=== PATIENT | male | born 1990 | race Asian ===

== ENCOUNTER 2024-11-26 18:10 | Emergency (ER) | payer OTHER ==
--- NOTE | 2024-11-26 18:22 | ED ---
Eye Problem HPI - General Source: patient <Christine Moraes - Last Filed: 11/26/24 18:20> <Brent Santa - Last Filed: 11/26/24 22:07> - General Stated complaint: rt eye issue Time Seen by Provider: 11/26/24 18:20 - History of Present Illness Initial comments: Quick [id number] male presenting for foreign body in right eye. States about 20 minutes ago he was working with metal when shards of metal flew into his eye. States he flushed his eye out and believes he got most of it out, however continues to report foreign body sensation and believes there is a piece of metal in his eye. He is able to see out of the eye. Last tetanus unknown. (Christine Moraes) - Related Data Previous Rx's Medication Instructions Recorded Ciprofloxacin Ophth Soln [Cipro 1 drops RIGHT EYE Q6HR #5 ml 11/26/24 0.3% Ophth Soln] Allergies Allergy/AdvReac Type Severity Reaction Status Date / Time No Known Allergies Allergy Verified 11/26/24 18:30 Review of Systems ROS Other: All systems not noted in ROS Statement are negative. <Christine Moraes - Last Filed: 11/26/24 18:20> ROS Other: All systems not noted in ROS Statement are negative. <Brent Santa - Last Filed: 11/26/24 22:07> ROS Statement: Those systems with pertinent positive or pertinent negative responses have been documented in the HPI. General Exam <Christien Moraes - Last Filed: 11/26/24 18:20> General appearance: alert, in no apparent distress Head exam: Present: atraumatic, normocephalic Eye exam: Present: PERRL, EOMI, other (No fluorescein uptake on the cornea, negative Penelope's, small metallic foreign body 6 o'clock position within the sclera with subconjunctival hemorrhage) Respiratory exam: Present: normal lung sounds bilaterally. Absent: respiratory distress Cardiovascular Exam: Present: regular rate, normal rhythm GI/Abdominal exam: Present: soft. Absent: distended, tenderness Extremities exam: Present: normal inspection, normal capillary refill Psychiatric exam: Present: normal affect, normal mood Skin exam: Present: warm, dry, intact <Brent Santa - Last Filed: 11/26/24 22:07> - General Exam Comments Initial Comments: Visual Physical Exam General: Well-appearing, nontoxic, no acute distress. Head: Normocephalic, atraumatic Eyes: PERRLA, EOMI ENT: Airway patent Chest: Nonlabored breathing Skin: No visual rash, normal skin tone Neuro: Alert and oriented 3 Musculoskeletal: No gross abnormalities (Christine Moraes) Medical Decision Making <Christine Moraes - Last Filed: 11/26/24 18:20> <BrisalillianaBrent - Last Filed: 11/26/24 22:07> - Medical Decision Making I completed the quick note portion of this chart signed Christine Moraes PA-C (Christine Moraes) Was pt. sent in by a medical professional or institution (ASHUTOSH Galloway, DENTIST/OWNER, urgent care, hospital, or senior care...) When possible be specific @ -No Did you speak to anyone other than the patient for history (EMS, parent, family, police, friend...)? What history was obtained from this source @ -No Did you review nursing and triage notes (agree or disagree)? Why? @ -I reviewed and agree with nursing and triage notes Were old charts reviewed (outside hosp., previous admission, EMS record, old EKG, old radiological studies, urgent care reports/EKG's, senior care records)? Report findings @ -No old charts were reviewed Differential Diagnosis :corneal foreign body, laceration, subconjunctival hemorrhage EKG interpreted by me (3pts min.). @ -As above X-rays interpreted by me (1pt min.). @ -None done CT interpreted by me (1pt min.). @ -None done U/S interpreted by me (1pt. min.). @ -None done What testing was considered but not performed or refused? (CT, X-rays, U/S, labs)? Why? @ -None What meds were considered but not given or refused? Why? @ -None Did you discuss the management of the patient with other professionals (professionals i.e. ASHUTOSH Galloway, DENTIST/OWNER, lab, RT, psych nurse, psychosocial rehabilitation counselor, proof machine operator supervisor, teacher, seismology technical officer, case management coordinator)? Give summary @ -No Was smoking cessation discussed for >3mins.? @ -No Was critical care preformed (if so, how long)? @ -No Were there social determinants of health that impacted care today? How? (Homelessness, low income, unemployed, alcoholism, drug addiction, transportation, low edu. Level, literacy, decrease access to med. care, mcc, rehab)? @ -No Was there de-escalation of care discussed even if they declined (Discuss DNR or withdrawal of care, Hospice)? DNR status @ -No What co-morbidities impacted this encounter? (DM, HTN, Smoking, COPD, CAD, Cancer, CVA, ARF, Chemo, Hep., AIDS, mental health diagnosis, sleep apnea, morbid obesity)? @ -None Was patient admitted / discharged? Hospital course, mention meds given and route, prescriptions, significant lab abnormalities, going to OR and other pertinent info. @ -34-year-old male with foreign body in the sclera with subconjunctival hemorrhage. The metallic foreign body is very small, believe able to be removed but subconjunctival hemorrhage limits visualization completely. There is no corneal laceration or abrasion. Tetanus is updated and the patient started on antibiotic drops and given ophthalmology follow-up. Undiagnosed new problem with uncertain prognosis? @ -No Drug Therapy requiring intensive monitoring for toxicity (Heparin, Nitro, Insulin, Cardizem)? @ -No Were any procedures done? @ -No Diagnosis/symptom? @ -Metallic foreign body right eye sclera Acute, or Chronic, or Acute on Chronic? @ -Acute Uncomplicated (without systemic symptoms) or Complicated (systemic symptoms)? @ -Default Side effects of treatment? @ -No Exacerbation, Progression, or Severe Exacerbation? @ -No Poses a threat to life or bodily function? How? (Chest pain, USA, DC, pneumonia, PE, COPD, DKA, ARF, appy, cholecystitis, CVA, Diverticulitis, Homicidal, Suicidal, threat to staff... and all critical care pts) @ -No (Brent Santa) Disposition <Christine Moraes - Last Filed: 11/26/24 18:20> Is patient prescribed a controlled substance at d/c from ED?: No Time of Disposition: 18:57 <Brent Santa - Last Filed: 11/26/24 22:07> Clinical Impression: Eye foreign body, Subconjunctival hemorrhage, traumatic Disposition: HOME SELF-CARE Condition: Fair Instructions (If sedation given, give patient instructions): Eye Foreign Body (ED) Prescriptions: Ciprofloxacin Ophth Soln [Cipro 0.3% Ophth Soln] 1 drops RIGHT EYE Q6HR #5 ml Referrals: None,Stated [Primary Care Provider] - 1-2 days Genaro Crawford MD [STAFF PHYSICIAN] - 1-2 days
[2024-11-26] MEDS: DIPH,PERTUS(ACELL)TETVAC-LF 0.5 ML VIAL IM ONE (19:27)
[2024-11-26] MEDS: FLUORESCEIN STRIPS 1 MG STRIP RIGHT EYE ONE (19:27)
[2024-11-26] MEDS: PROPARACAINE 0.5% OPHTH DROPS 15 ML BTL RIGHT EYE STA (19:27)
== END 2024-11-26 19:29 | disposition home or self-care (01) ==
LOC: EC 18:10
DX: H11.31 Conjunctival hemorrhage, right eye (principal); Z23 Encounter for immunization; W20.8XXA Other cause of strike by thrown, projected or falling object, initial encounter
CPT/HCPCS: 90471; 90715; 99283

== ENCOUNTER 2025-01-17 18:07 | Emergency (ER) | payer OTHER ==
--- NOTE | 2025-01-17 18:39 | ED ---
General Adult HPI - General Chief complaint: Psychiatric Symptoms Stated complaint: Petition Time Seen by Provider: 01/17/25 18:15 Source: patient, RN notes reviewed, old records reviewed Mode of arrival: ambulatory Limitations: no limitations - History of Present Illness Initial comments: 34-year-old male presents on court ordered pickup for mental health evaluation. The patient himself is not aware of why he is here. He denies drugs or alcohol. He denies suicidal or homicidal ideation. He denies a prior history of mental illness. Patient accompanied by local police. Patient has no physical complaints. - Related Data Previous Rx's Medication Instructions Recorded Ciprofloxacin Ophth Soln [Cipro 1 drops RIGHT EYE Q6HR #5 ml 11/26/24 0.3% Ophth Soln] Allergies Allergy/AdvReac Type Severity Reaction Status Date / Time No Known Allergies Allergy Verified 01/17/25 18:10 Review of Systems ROS Statement: Those systems with pertinent positive or pertinent negative responses have been documented in the HPI. ROS Other: All systems not noted in ROS Statement are negative. Past Medical History Past Medical History: No Reported History History of Any Multi-Drug Resistant Organisms: MRSA Date of last positivie culture/infection: 2015 Past Surgical History: No Surgical Hx Reported Past Psychological History: No Psychological Hx Reported Smoking Status: Current every day smoker Past Alcohol Use History: Rare Past Drug Use History: Marijuana General Exam Limitations: no limitations General appearance: alert, in no apparent distress Head exam: Present: atraumatic, normocephalic Eye exam: Present: normal appearance, PERRL ENT exam: Present: normal exam Neck exam: Present: normal inspection. Absent: tenderness, meningismus Respiratory exam: Present: normal lung sounds bilaterally. Absent: respiratory distress, wheezes Cardiovascular Exam: Present: regular rate, normal rhythm GI/Abdominal exam: Present: soft. Absent: distended, tenderness Neurological exam: Present: alert, oriented X3, CN II-XII intact, normal gait. Absent: motor sensory deficit Psychiatric exam: Present: flat affect. Absent: homicidal ideation, suicidal ideation Skin exam: Present: warm, dry, intact Course Vital Signs 01/17/25 01/17/25 18:08 19:03 Temperature 98.3 F Pulse Rate 111 H Respiratory 16 17 Rate Blood Pressure 138/84 O2 Sat by Pulse 97 Oximetry Medical Decision Making - Medical Decision Making Was pt. sent in by a medical professional or institution (ASHUTOSH Galloway, ROLL EXAMINER, urgent care, hospital, or skilled nursing...) When possible be specific @ -No Did you speak to anyone other than the patient for history (EMS, parent, family, police, friend...)? What history was obtained from this source @ -No Did you review nursing and triage notes (agree or disagree)? Why? @ -I reviewed and agree with nursing and triage notes Were old charts reviewed (outside hosp., previous admission, EMS record, old EKG, old radiological studies, urgent care reports/EKG's, skilled nursing records)? Report findings @ -No old charts were reviewed Differential Mental Health Depression, anxiety, bipolar, psychosis, schizophrenia, borderline personality, situational depression, adjustment disorder, behavioral disorder, brain tumor, malingering, substance abuse, encephalopathy, medication reaction, dementia, hypothyroidism, degenerative neurologic disorder, lupus.... This is not meant to be all-inclusive list EKG interpreted by me (3pts min.). @ -As above X-rays interpreted by me (1pt min.). @ -None done CT interpreted by me (1pt min.). @ -None done U/S interpreted by me (1pt. min.). @ -None done What testing was considered but not performed or refused? (CT, X-rays, U/S, labs)? Why? @ -None What meds were considered but not given or refused? Why? @ -None Did you discuss the management of the patient with other professionals (professionals i.e. ASHUTOSH Galloway, ROLL EXAMINER, lab, RT, psych nurse, social services counselor, bilingual executive assistant, teacher, sports development officer, field nurse case manager)? Give summary @ -No Was smoking cessation discussed for >3mins.? @ -No Was critical care preformed (if so, how long)? @ -No Were there social determinants of health that impacted care today? How? (Homelessness, low income, unemployed, alcoholism, drug addiction, transportation, low edu. Level, literacy, decrease access to med. care, retirement, rehab)? @ -No Was there de-escalation of care discussed even if they declined (Discuss DNR or withdrawal of care, Hospice)? DNR status @ -No What co-morbidities impacted this encounter? (DM, HTN, Smoking, COPD, CAD, Cancer, CVA, ARF, Chemo, Hep., AIDS, mental health diagnosis, sleep apnea, morbid obesity)? @ -None Was patient admitted / discharged? Hospital course, mention meds given and route, prescriptions, significant lab abnormalities, going to OR and other pertinent info. @ -Patient medically cleared for EPS evaluation, patient evaluated by EPS and felt to be safe for discharge. - Lab Data Lab Results 01/17/25 Range/Units 18:52 Urine Opiates Screen Not Detected (NotDetected) Ur Oxycodone Screen Not Detected (NotDetected) Urine Methadone Screen Not Detected (NotDetected) Ur Barbiturates Screen Not Detected (NotDetected) U Tricyclic Antidepress Not Detected (NotDetected) Ur Phencyclidine Scrn Not Detected (NotDetected) Ur Amphetamines Screen Not Detected (NotDetected) U Methamphetamines Scrn Not Detected (NotDetected) U Benzodiazepines Scrn Not Detected (NotDetected) Urine Cocaine Screen Not Detected (NotDetected) U Marijuana (THC) Screen Not Detected (NotDetected) Disposition Clinical Impression: Chronic schizophrenia Disposition: HOME SELF-CARE Condition: Fair Additional Instructions: Please follow-up with community mental health and your primary care provider. Is patient prescribed a controlled substance at d/c from ED?: No Referrals: None,Stated [Primary Care Provider] - 1-2 days Time of Disposition: 20:48
[2025-01-17 19:18] LABS: Amphetamine Screen,Urine Not Detected (NotDetected); Barbiturate Screen,Urine Not Detected (NotDetected); Benzodiazepines Screen,Urine Not Detected (NotDetected); Cocaine Screen,Urine Not Detected (NotDetected); Methadone Screen, Urine Not Detected (NotDetected); Opiate Screen,Urine Not Detected (NotDetected); Oxycodone Screen, Urine Not Detected (NotDetected); Phencyclidine Screen,Urine Not Detected (NotDetected); Tricyclic Antidepressant,Urine Not Detected (NotDetected); Urn Cannabinoid Scrn Not Detected (NotDetected)
[2025-01-17 21:00] VITALS: BP 155/99; PULSE 92; RESP 20; TEMP 98.6
== END 2025-01-17 21:18 | disposition home or self-care (01) ==
LOC: EC 18:07
DX: F20.9 Schizophrenia, unspecified (principal); F17.200 Nicotine dependence, unspecified, uncomplicated
CPT/HCPCS: 80306; 99285